=== PATIENT | male | born 1990 | race African-American/Black ===

== ENCOUNTER 2020-07-30 22:44 | Emergency (ER) | payer OTHER ==
[2020-07-31] LABS: SARS-COV-2 RT PCR NEGATIVE (NEGATIVE)
--- NOTE | 2020-07-31 01:30 | EDPHYS ---
Physician Documentation [facility] Name: Kurtis Toribio Jr Age: 30 yrs Sex: Male : 1990 Arrival Date: 07/30/2020 Time: 22:47 Bed 8 Private MD: ED Physician Sae Kaiser HPI: 07/31 00:25 This 30 yrs old Black Male presents to ER via Ambulatory with complaints of Headache, kb Cough, Abdominal Pain, Breathing Difficulty. 00:25 The patient or guardian reports cough, that is intermittent, described as moderate, kb with no sputum. 00:25 Onset: The symptoms/episode began/occurred 2 day(s) ago. Severity of symptoms: At their kb worst the symptoms were moderate, in the emergency department the symptoms are unchanged. Modifying factors: The symptoms are alleviated by nothing, the symptoms are aggravated by nothing. Associated signs and symptoms: The patient has no apparent associated signs or symptoms. The patient has not experienced similar symptoms in the past. The patient has not recently seen a physician. Pt reports cough for 2 days. States when he coughs his head throbs and he has soreness to abd and chest. Historical: - Allergies: 07/30 23:03 No Known Allergies; dm5 - Home Meds: 23:03 None [Active]; dm5 - PMHx: 23:03 Asthma; dm5 - PSHx: 23:03 None; dm5 - Immunization history:: Adult Immunizations up to date. - Social history:: Smoking status: Patient denies any tobacco usage or history of. ROS: 07/31 00:23 Constitutional: Negative for fever, chills, and weight loss, Cardiovascular: Negative kb for chest pain, palpitations, and edema, Abdomen/GI: Negative for abdominal pain, nausea, vomiting, diarrhea, and constipation, MS/Extremity: Negative for injury and deformity, Skin: Negative for injury, rash, and discoloration. Respiratory: Positive for cough, Negative for dyspnea on exertion, hemoptysis, orthopnea, pleurisy, shortness of breath, sputum production, wheezing. Neuro: Positive for headache. Exam: 00:25 Constitutional: This is a well developed, well nourished patient who is awake, alert, kb and in no acute distress. Head/Face: Normocephalic, atraumatic. Cardiovascular: Regular rate and rhythm with a normal S1 and S2. No gallops, murmurs, or rubs. No pulse deficits. Respiratory: Respirations even and unlabored. No increased work of breathing, no retractions or nasal flaring. Abdomen/GI: Soft, non-tender. No distention Skin: Warm, dry with normal turgor. Normal color. MS/ Extremity: Pulses equal, no cyanosis. Neurovascular intact. Full, normal range of motion. Neuro: Awake and alert, GCS 15, oriented to person, place, time, and situation. Moves all extremities. Normal gait. Vital Signs: 00:15 BP 120 / 62; Pulse 68; Resp 17; Pulse Ox 100% ; ea MDM: 07/30 22:53 Patient medically screened. kb 07/31 00:22 Data reviewed: vital signs, nurses notes. Data interpreted: Pulse oximetry: on room air kb is 100 %. Interpretation: normal. Counseling: I had a detailed discussion with the patient and/or guardian regarding: the historical points, exam findings, and any diagnostic results supporting the discharge/admit diagnosis, the need for outpatient follow up, a family practitioner, to return to the emergency department if symptoms worsen or persist or if there are any questions or concerns that arise at home. 07/30 23:01 Order name: Chest Single View XRAY kb 07/31 00:01 Order name: COVID-19/FLU A+B; Complete Time: 00:09 EDMS Administered Medications: No medications were administered Disposition: 07:15 Co-signature as Attending Physician, Sae Kaiser MD. 7 Disposition: 07/31/20 00:17 Discharged to Home. Impression: Cough. - Condition is Stable. - Discharge Instructions: Cough, Adult, [id number]. - Medication Reconciliation Form, Thank You Letter, Antibiotic Education, Prescription Opioid Use, Work release form form. - Follow up: Emergency Department; When: As needed; Reason: Worsening of condition. Follow up: Private Physician; When: 2 - 3 days; Reason: Recheck today's complaints, Continuance of care, Re-evaluation by your physician. Signatures: Dispatcher [employer] EDIA Sonia Barros, Veronika Delgadillo, RADHIKA GARRIDO dm5 Cintia Hurt, Sae Gil RN, ea, MD MD [facility] Corrections: (The following items were deleted from the chart) 07/30 23:13 23:02 CORONAVIRUS+MR.LAB.BRZ ordered. EDMS EDMS 23:14 23:02 Influenza Screen (A \T\ B)+BA.LAB.BRZ ordered. EDIA EDMS 07/31 00:36 00:17 07/31/2020 00:17 Discharged to Home. Impression: Cough. Condition is Stable. ea Forms are Medication Reconciliation Form, Thank You Letter, Antibiotic Education, Prescription Opioid Use. Follow up: Emergency Department; When: As needed; Reason: Worsening of condition. Follow up: Private Physician; When: 2 - 3 days; Reason: Recheck today's complaints, Continuance of care, Re-evaluation by your physician. kb
--- NOTE | 2020-07-31 01:30 | ER ---
Nurse's Notes [facility] Name: Kurtis Toribio Jr Age: 30 yrs Sex: Male : 1990 Arrival Date: 07/30/2020 Time: 22:47 Bed 8 Private MD: Diagnosis: Cough Presentation: 07/30 23:00 Chief complaint: Patient states: cough, headache, trouble breathing x 2 days "head be dm5 banging like it do when you have a bad headache" chest and head hurts when coughing. Coronavirus screen: cough unrelated to allergies, difficulty breathing, headache, Client presents with at least one sign or symptom that may indicate coronavirus-19. Standard/surgical mask placed on the client. Ebola Screen: Patient negative for fever greater than or equal to 101.5 degrees Fahrenheit, and additional compatible Ebola Virus Disease symptoms Patient denies exposure to infectious person. Patient denies travel to an Ebola-affected area in the 21 days before illness onset. No symptoms or risks identified at this time. Initial Sepsis Screen: Does the patient meet any 2 criteria? No. Patient's initial sepsis screen is negative. Does the patient have a suspected source of infection? No. Patient's initial sepsis screen is negative. Risk Assessment: Do you want to hurt yourself or someone else? Patient reports no desire to harm self or others. Onset of symptoms was July 28, 2020. 23:00 Method Of Arrival: Ambulatory dm5 23:00 Acuity: JENNIFER 4 dm5 Triage Assessment: 23:03 Headache History: The patient has had previous headaches and this one is similar to dm5 previous episodes. General: Appears in no apparent distress. uncomfortable, Behavior is calm, cooperative. Pain: Complains of pain in head and chest Pain currently is 5 out of 10 on a pain scale. Pain began 2-3 days ago. Also complains of no other associated symptoms. Neuro: Level of Consciousness is awake, alert, obeys commands, Oriented to person, place, time, situation, Moves all extremities. Gait is steady. Respiratory: Reports shortness of breath at rest cough that is non-productive, Airway is patent Respiratory effort is even, unlabored, Respiratory pattern is regular, symmetrical, Breath sounds are clear bilaterally. GI: No signs and/or symptoms were reported involving the gastrointestinal system. : No signs and/or symptoms were reported regarding the genitourinary system. Derm: Skin is pink, warm \\T\\ dry. Historical: - Allergies: 23:03 No Known Allergies; dm5 - Home Meds: 23:03 None [Active]; dm5 - PMHx: 23:03 Asthma; dm5 - PSHx: 23:03 None; dm5 - Immunization history:: Adult Immunizations up to date. - Social history:: Smoking status: Patient denies any tobacco usage or history of. Screenin/20 00:10 Abuse screen: Denies threats or abuse. Nutritional screening: No deficits noted. ea Tuberculosis screening: No symptoms or risk factors identified. Fall Risk None identified. Assessment: 00:10 General: Appears in no apparent distress. Behavior is calm, cooperative, appropriate ea for age. Pain: Denies pain. Neuro: Level of Consciousness is awake, alert, obeys commands. Cardiovascular: Patient's skin is warm and dry. Respiratory: Airway is patent Respiratory effort is even, unlabored, Respiratory pattern is regular, symmetrical. Derm: Skin is pink, warm \\T\\ dry. 00:34 Reassessment: Patient and/or family updated on plan of care and expected duration. Pain ea level reassessed. Patient is alert, oriented x 3, equal unlabored respirations, skin warm/dry/pink. Discharge instruction given to patient verbalized the understanding of instruction. Pt left ED ambulatory tolerating well. Vital Signs: 00:15 BP 120 / 62; Pulse 68; Resp 17; Pulse Ox 100% ; ea ED Course: 07/30 22:47 Patient arrived in ED. es 22:53 Sonia Barros FNP-C [facility]. kb 22:53 Sae Kaiser MD is Attending Physician. kb 23:00 Veronika Savage, RADHIKA is Primary Nurse. dm5 23:03 Triage completed. dm5 23:03 Arm band placed on Patient placed in an exam room. dm5 23:13 Chest Single View XRAY In Process Unspecified. EDMS 07/31 00:08 Shaji Valencia, RN is Primary Nurse. sg 00:10 Patient has correct armband on for positive identification. Bed in low position. Call ea light in reach. 00:33 No provider procedures requiring assistance completed. Patient did not have IV access ea during this emergency room visit. Administered Medications: No medications were administered Outcome: 00:17 Discharge ordered by . lui 00:33 Discharged to home ambulatory. leatha 00:33 Condition: stable 00:33 Discharge instructions given to patient, Instructed on discharge instructions, follow up and referral plans. Demonstrated understanding of instructions, follow-up care. 00:36 Patient left the ED. leatha Signatures: Dispatcher [employer] EDSonia Kwong, MOTION PICTURE PRINTER-C URI-Veronika Peralta, RN RN Shaji Jalloh RN Marla Godinez Elena, RN RN ea
[2020-07-31 01:35] VITALS: BP 120/62; O2SAT 100
--- NOTE | 2020-07-31 12:59 | RAD REPORT ---
EXAM DESCRIPTION: Chest Single View 07/31/2020 12:09 AM CDT CLINICAL HISTORY: 30 years, Male, COUGH COMPARISON: None. FINDINGS: Single view of the chest was obtained portable. No prior films are available for compariso n. The lung volume is slightly decreased. The cardiomediastinal silhouette demonstrate to be unremark able. The heart is not enlarged. The thoracic aorta is unremarkable. The pulmonary vasculature is nor mal distribution. Costophrenic angles are sharp. No areas of consolidation or masses are seen. Th e rest of the soft tissue and bony structures demonstrate to be unremarkable. IMPRESSION: SLIGHT DECREASED LUNG VOLUME. NO ACUTE CARDIOPULMONARY DISEASE SEEN. Electronically signed by: Keenan Garcia MD 07/31/2020 12:10 AM CDT Due to temporary technical issues with the PACS/Fluency reporting system, reports are being signed by the in house radiologist without review as a courtesy to ensure prompt reporting. The interpreting r adiologist is fully responsible for the content of the report.
== END 2020-07-31 00:36 | disposition home or self-care (01) ==
LOC: ER 22:44
DX: R05 Cough (principal); Z20.822 Contact with and (suspected) exposure to COVID-19
CPT/HCPCS: 0240U; 71045; 99282

== ENCOUNTER 2023-02-25 00:14 | Emergency (ER) | payer OTHER ==
[2023-02-25] MEDS ORDERED: METHYLPREDNISOLONE 125 MG INJ ONE (01:00)
[2023-02-25] MEDS ORDERED: ALBUTEROL 2.5 MG/3 ML NEB SOL ONE (01:00)
[2023-02-25] MEDS ORDERED: ONDANSETRON 4 MG/2 ML VIAL ONE (01:01)
[2023-02-25] MEDS ORDERED: IPRATROPIUM BROM 0.5MG/2.5ML ONE (01:01)
[2023-02-25] MEDS ORDERED: KETOROLAC 30 MG/ML INJ ONE (01:01)
[2023-02-25 01:12] LABS: Absolute Lymphocytes (CBC) 2.8 K/uL (0.7-4.9); Hematocrit 42.5 % (39.6-49.0); Lymphocytes % 32.6 % (15.3-44.8); MCV 90.3 fL (80-100); MPV 7.3 fL (7.6-11.3); Platelets 301 thou/uL (152-406)
[2023-02-25 01:26] LABS: Protime INR 1.17
[2023-02-25 01:31] LABS: Albumin 3.6 g/dL (3.4-5.0); Bilirubin Direct 0.1 mg/dL (0-0.2); Bilirubin Indirect, Calculated 0.3 mg/dL (0.2-0.8); Bilirubin Total 0.4 mg/dL (0.2-1.0); Magnesium 2.1 mg/dL (1.6-2.4); Potassium 3.8 mEq/L (3.5-5.1); Protein, Total 7.5 g/dL (6.4-8.2); Troponin High Sensitivity 7.9 pg/mL (<58.9)
[2023-02-25 01:38] LABS: Barbiturates NEGATIVE (NEGATIVE); Benzodiazepines NEGATIVE (NEGATIVE); Cocaine NEGATIVE (NEGATIVE); METHAMPHETAM NEGATIVE (NEGATIVE); Methadone ND (NEGATIVE); Opiates NEGATIVE (NEGATIVE); Phencyclidine NEGATIVE (NEGATIVE); THC Cannibis NEGATIVE (NEGATIVE)
--- NOTE | 2023-02-25 03:08 | EDPHYS ---
Physician Documentation [facility] Name: Kurtis Toribio Jr Age: 33 yrs Sex: Male : 1990 Arrival Date: 02/25/2023 Time: 00:14 Bed 5 Private MD: ED Physician Moody Lara HPI: 02/25 00:35 This 33 yrs old Black Male presents to ER via Wheelchair with complaints of Asthma cp Exacerbation. 00:35 The patient has shortness of breath at rest. Onset: The symptoms/episode began/occurred cp over past couple days, worse today. Associated signs and symptoms: Pertinent positives: chest pain, non-productive cough, Pertinent negatives: fever, vomiting. Severity of symptoms: in the emergency department the symptoms are unchanged despite home interventions. Historical: - Allergies: 00:33 No Known Allergies; as6 - PMHx: 00:33 Asthma; as6 - PSHx: 00:33 None; as6 - Immunization history:: Client reports having NOT received the Covid vaccine. - Social history:: Smoking status: Patient reports the use of cigarette tobacco products, denies chronic smoking, but will smoke occasionally. ROS: 00:40 Constitutional: Negative for fever, poor PO intake, cp 00:40 Eyes: Negative for injury, pain, redness, and discharge, cp 00:40 ENT: Negative for drainage from ear(s), ear pain, sore throat, difficulty swallowing, difficulty handling secretions, 00:40 Cardiovascular: Positive for chest pain, Negative for edema, palpitations, 00:40 Respiratory: Positive for cough, with no reported sputum, shortness of breath, 00:40 Abdomen/GI: Positive for abdominal pain, Negative for vomiting, diarrhea, constipation, 00:40 Neuro: Negative for altered mental status, dizziness, headache, loss of consciousness, syncope, weakness, 00:40 All other systems are negative, Exam: 00:45 Constitutional: The patient appears in no acute distress, alert, awake, cp non-diaphoretic, non-toxic, well developed, well nourished, uncomfortable, 00:45 Head/Face: Normocephalic, atraumatic. cp 00:45 Eyes: Periorbital structures: appear normal, Conjunctiva: normal, no exudate, no injection, Sclera: no appreciated abnormality, Lids and lashes: appear normal, bilaterally, 00:45 ENT: External ear(s): are unremarkable, Nose: is normal, Mouth: Lips: moist, Oral mucosa: moist, Posterior pharynx: is normal, airway is patent, no erythema, no exudate, 00:45 Neck: ROM/movement: is normal, is supple, without pain, no range of motions limitations, no meningismus, 00:45 Chest/axilla: Inspection: normal, Palpation: crepitus, is not appreciated, tenderness, that is mild, of the anterior aspect of left upper chest, diaphragm, mid-sternal area and left breast, 00:45 Cardiovascular: Rate: normal, Rhythm: regular, Edema: is not appreciated, JVD: is not appreciated, 00:45 Respiratory: the patient does not display signs of respiratory distress, Respirations: labored breathing, is not present, shallow respirations, that is mild, Breath sounds: decreased breath sounds, that are moderate, throughout, stridor, is not appreciated, 00:45 Abdomen/GI: Inspection: abdomen appears normal, Bowel sounds: active, all quadrants, Palpation: soft, in all quadrants, mild abdominal tenderness, in the epigastric area, rebound tenderness, is not appreciated, involuntary guarding, is not appreciated, 00:45 Skin: no rash present. 00:45 Neuro: Orientation: to person, place \T\ time. Mentation: is normal, Motor: moves all fours, strength is normal, Sensation: is normal, 00:50 ECG was reviewed by the Attending Physician. cp Vital Signs: 00:31 BP 148 / 95; Pulse 72; Resp 24 S; Temp 97.9(O); Pulse Ox 100% on R/A; Weight 127.01 kg as6 (R); Height 5 ft. 11 in. (R); Pain 10/10; 00:31 Body Mass Index 39.05 (127.01 kg, 180.34 cm) as6 00:31 Pain Scale: Adult as6 MDM: 00:27 Patient medically screened. cp 03:08 Data reviewed: vital signs, nurses notes, lab test result(s), EKG, radiologic studies, cp CT scan, plain films. 03:08 Consideration of Admission/Observation Escalation of care including cp admission/observation considered. I considered the following discharge prescriptions or medication management in the emergency department Medications were administered in the Emergency Department. See MAR. Care significantly affected by the following chronic conditions: asthma. Counseling: I had a detailed discussion with the patient and/or guardian regarding the historical points, exam findings, and any diagnostic results supporting the discharge/admit diagnosis, lab results, radiology results, to return to the emergency department if symptoms worsen or persist or if there are any questions or concerns that arise at home. Response to treatment: the patient's symptoms have markedly improved after treatment, and as a result, I will discharge patient. Special discussion: Based on the patient's history, exam, and Dx evaluation, there is no indication for emergent intervention or inpatient Tx. It is understood by the patient/guardian that if the Sx's persist or worsen they need to return immediately for re-evaluation. 02/25 00:30 Order name: Basic Metabolic Panel; Complete Time: : cp 02/25 02:34 Interpretation: Normal except: CL 111. cp 02/25 00:30 Order name: CBC with Diff; Complete Time: : cp 02/25 00:30 Order name: LFT's; Complete Time: cp 02/25 02:35 Interpretation: Normal except: ALT 81; GLOB 3.9; A/G 0.9. cp 02/25 00:30 Order name: Magnesium; Complete Time: : cp 02/25 00:30 Order name: NT PRO-BNP; Complete Time: : cp 02/25 00:30 Order name: PT-INR; Complete Time: 01: cp 02/25 00:30 Order name: Troponin HS; Complete Time: : cp 02/25 00:30 Order name: COVID-19 SARS RT PCR; Complete Time: : cp 02/25 00:30 Order name: Influenza Screen (a \T\ B); Complete Time: : cp 02/25 00:30 Order name: UDS; Complete Time: : cp 02/25 00:31 Order name: Lipase; Complete Time: : cp 02/25 00:30 Order name: XRAY Chest (1 view) cp 02/25 01:29 Order name: CT Chest For PE Angio cp 02/25 00:30 Order name: EKG; Complete Time: 00:31 cp 02/25 00:30 Order name: Cardiac monitoring; Complete Time: 03:09 cp 02/25 00:30 Order name: EKG - Nurse/Tech; Complete Time: : 02/25 00:30 Order name: IV Saline Lock; Complete Time: 02/25 00:30 Order name: Labs collected and sent; Complete Time: 02/25 00:30 Order name: O2 Per Protocol; Complete Time: : 02/25 00:30 Order name: O2 Sat Monitoring; Complete Time: : EC:50 Rate is 87 beats/min. Rhythm is regular. MI interval is normal. QRS interval is normal. cp QT interval is normal. T waves are Inverted in lead aVR. Interpreted by me. Reviewed by me. Administered Medications: 00:33 CANCELLED (Physician Discretion): morphineor iv 4 mg IVP once over 4 mins cp 01:05 Drug: DuoNeb Nebulize (2.5 mg - 0.5 mg) 3 ml Nebulizer once Route: Nebulizer; jb4 01:05 Drug: MethylPrednisoLONE IVP 125 mg IVP once Route: IVP; Site: right antecubital; jb4 01:05 Not Given (Patient Refused): mg IVP once jb4 01:06 Not Given (Patient Refused): ondansetron 4 mg IVP once; over 2 minutes jb4 Disposition: 03:28 Co-signature as Attending Physician, Moody Lara MD I agree with the assessment sp4 and plan of care. I reviewed the patient's care provided by the Advanced Practice Provider and agree with the diagnosis and treatment plan. Disposition Summary: 02/25/23 03:08 Discharge Ordered Notes: Location: Home cp Problem: an acute exacerbation cp Symptoms: have improved cp Condition: Stable cp Diagnosis - Unspecified asthma with (acute) exacerbation cp - Chest pain, unspecified cp Followup: cp - With: Private Physician - When: 2 - 3 days - Reason: Recheck today's complaints Discharge Instructions: - Discharge Summary Sheet cp - Asthma, Adult cp - Nonspecific Chest Pain, Adult cp Forms: - Medication Reconciliation Form cp - Thank You Letter cp - Antibiotic Education cp - Prescription Opioid Use cp - Patient Portal Instructions cp - Leadership Thank You Letter cp Prescriptions: - albuterol sulfate 90 mcg/actuation Inhalation HFA Aerosol Inhaler - inhale 2 puff INHALATION route every 4-6 hours as needed for shortness of cp breath or wheezing; 1 unit; Refills: 0, Product Selection Permitted - Ibuprofen 800 mg Oral Tablet - take 1 tablet ORAL route every 8 hours As needed take with food; 30 tablet; cp Refills: 0, Product Selection Permitted - Medrol (Brad) 4 mg Oral Tablets, Dose Pack - take 1 tablet ORAL route as directed - follow package instructions; 1 packet; cp Refills: 0, Product Selection Permitted Signatures: Dispatcher [employer] EDMS Aaron Parada PA PA cp Chepe Arnold, RN RN jb4 Fritz Santiago RN RN as6 Moody Lara MD MD sp4 Corrections: (The following items were deleted from the chart) 00:33 00:31 morphine IVP or IV 4 mg IVP once over 4 mins ordered. cp cp 01:30 00:31 D-DIMER+COAG.LAB.BRZ ordered. EDMS EDMS 23:20 03:28 ED course: . sp4 cp
--- NOTE | 2023-02-25 03:08 | ER ---
Nurse's Notes [facility] Name: Kurtis Toribio Jr Age: 33 yrs Sex: Male : 1990 Arrival Date: 02/25/2023 Time: 00:14 Bed 5 Private MD: Diagnosis: Unspecified asthma with (acute) exacerbation;Chest pain, unspecified Presentation: 02/25 00:31 Chief complaint: Patient states: cough and "asthma attack" for a couple days with as6 worsening shortness of breath that started today. Coronavirus screen: At this time, the client does not indicate any symptoms associated with coronavirus-19. Ebola Screen: No symptoms or risks identified at this time. Initial Sepsis Screen: Does the patient meet any 2 criteria? No. Patient's initial sepsis screen is negative. Does the patient have a suspected source of infection? No. Patient's initial sepsis screen is negative. Risk Assessment: Do you want to hurt yourself or someone else? Patient reports no desire to harm self or others. Onset of symptoms was February 24, 2023. 00:31 Acuity: JENNIFER 3 as6 00:31 Method Of Arrival: Wheelchair as6 Historical: - Allergies: 00:33 No Known Allergies; as6 - PMHx: 00:33 Asthma; as6 - PSHx: 00:33 None; as6 - Immunization history:: Client reports having NOT received the Covid vaccine. - Social history:: Smoking status: Patient reports the use of cigarette tobacco products, denies chronic smoking, but will smoke occasionally. Screenin:15 [facility] ED Fall Risk Assessment (Adult) History of falling in the last 3 months, jb4 including since admission No falls in past 3 months (0 pts) Confusion or Disorientation No (0 pts) Score/Fall Risk Level 0 - 2 = Low Risk Oriented to surroundings, Maintained a safe environment. Abuse screen: Denies threats or abuse. Nutritional screening: No deficits noted. Tuberculosis screening: No symptoms or risk factors identified. Assessment: 00:45 General: Appears in no apparent distress. comfortable, Behavior is calm, cooperative, jb4 appropriate for age. Pain: Denies pain. Neuro: Level of Consciousness is awake, alert, obeys commands, Oriented to person, place, time, situation. Cardiovascular: Patient's skin is warm and dry. Respiratory: Airway is patent Respiratory effort is even, unlabored, Respiratory pattern is regular, symmetrical. GI: No signs and/or symptoms were reported involving the gastrointestinal system. : No signs and/or symptoms were reported regarding the genitourinary system. EENT: No signs and/or symptoms were reported regarding the EENT system. Derm: Skin is intact, Skin is dry, Skin is normal, Skin temperature is warm. Musculoskeletal: Circulation, motion, and sensation intact. Range of motion: intact in all extremities. 01:53 Reassessment: Patient appears in no apparent distress at this time. Patient and/or jb4 family updated on plan of care and expected duration. Pain level reassessed. Patient states feeling better. 03:15 Reassessment: Patient appears in no apparent distress at this time. Patient and/or jb4 family updated on plan of care and expected duration. Pain level reassessed. Patient is alert, oriented x 3, equal unlabored respirations, skin warm/dry/pink. Vital Signs: 00:31 BP 148 / 95; Pulse 72; Resp 24 S; Temp 97.9(O); Pulse Ox 100% on R/A; Weight 127.01 kg as6 (R); Height 5 ft. 11 in. (R); Pain 10/10; 00:31 Body Mass Index 39.05 (127.01 kg, 180.34 cm) as6 00:31 Pain Scale: Adult as6 ED Course: 00:16 Patient arrived in ED. mr 00:17 Aaron Parada PA is PHCP. cp 00:17 Moody Lara MD is Attending Physician. cp 00:30 Arm band placed on. as6 00:33 Triage completed. as6 01:09 XRAY Chest (1 view) In Process Unspecified. EDMS 02:06 CT Chest For PE Angio In Process Unspecified. EDMS 03:15 Patient has correct armband on for positive identification. Bed in low position. Call jb4 light in reach. Side rails up X 1. 03:46 Chepe Arnold, RADHIKA is Primary Nurse. jb4 03:46 No provider procedures requiring assistance completed. IV discontinued, intact, jb4 bleeding controlled, No redness/swelling at site. Pressure dressing applied. Administered Medications: 00:33 CANCELLED (Physician Discretion): morphineor iv 4 mg IVP once over 4 mins cp 01:05 Drug: DuoNeb Nebulize (2.5 mg - 0.5 mg) 3 ml Nebulizer once Route: Nebulizer; jb4 01:05 Drug: MethylPrednisoLONE IVP 125 mg IVP once Route: IVP; Site: right antecubital; jb4 01:05 Not Given (Patient Refused): mg IVP once jb4 01:06 Not Given (Patient Refused): ondansetron 4 mg IVP once; over 2 minutes jb4 Outcome: 03:08 Discharge ordered by MD. cp 03:46 Discharged to home ambulatory, jb4 03:46 Condition: stable 03:46 Discharge instructions given to patient, Instructed on discharge instructions, follow up and referral plans. medication usage, Demonstrated understanding of instructions, follow-up care, medications, Prescriptions given X 3, 03:47 Patient left the ED. jb4 Signatures: Dispatcher [employer] EDMS Ondina Friedman, Reg Reg mr Aaron Parada, PA PA Chepe Cunningham, RN RN jb4 Fritz Santiago RN RN as6 Corrections: (The following items were deleted from the chart) 03:46 03:15 No provider procedures requiring assistance completed. jb4 jb4 03:46 03:15 IV discontinued, intact, bleeding controlled, No redness/swelling at site. jb4 Pressure dressing applied, jb4
[2023-02-25 04:14] VITALS: BP 148/95; TEMP 97.9; O2SAT 100
--- NOTE | 2023-02-26 17:05 | EKG ---
Test Date: 2023-02-25 Test Time: 00:43:36 Television Production Assistant: FLORENCIO MEASUREMENT RESULTS: Intervals: Rate: 87 OR: 146 QRSD: 76 QT: 352 QTc: 423 [place]: P: 73 OR: 146 QRS: 88 T: 36 INTERPRETIVE STATEMENTS: Normal sinus rhythm Normal ECG Compared to ECG 03/01/2017 15:57:22 Sinus arrhythmia no longer present T-wave abnormality no longer present Electronically Signed On 02-26-23 17:03:49 CDT by Oleksandr Brito
--- NOTE | 2023-02-26 17:23 | RAD REPORT ---
EXAM DESCRIPTION: Chest Single View 02/25/2023 1:19 AM CDT CLINICAL HISTORY: 33 years, Male, CHEST PAIN COMPARISON: None. FINDINGS: 1 x-ray views of the chest (portable) was obtained. No prior films are available for [facility]. The cardiomediastinal silhouette demonstrate to be within normal limits. The heart demonstrate to be within normal limits. The thoracic aorta is unremarkable. The pulmonary vasculature is normal distribution. Costophrenic angles are sharp. No areas of consolidation or masses are seen. The re st of the soft tissue and bony structures demonstrate to be unremarkable. IMPRESSION: No acute cardiopulmonary disease. Electronically signed by: Keenan Garcia MD 02/25/2023 1:19 AM CDT Due to temporary technical issues with the PACS/Fluency reporting system, reports are being signed by the in house radiologists without review as a courtesy to insure prompt reporting. The interpreting radiologist is fully responsible for the content of the report.
--- NOTE | 2023-02-26 17:25 | RAD REPORT ---
EXAM DESCRIPTION: CT Angiography Chest With Intravenous Contrast CLINICAL HISTORY: The patient is 33 years old and is Male; Chest pain;SOB TECHNIQUE: Axial computed tomographic angiography images of the chest with intravenous contrast. T his CT exam was performed using one or more of the following dose reduction techniques: automated e xposure control, adjustment of the mA and/or kV according to patient size, and/or use of iterative re construction technique. MIP reconstructed images were created and reviewed. Oblique reformatted images were created and reviewed. DLP: 388 mGy*cm COMPARISON: Chest radiograph of the same day. FINDINGS: PULMONARY ARTERIES: Unremarkable. No pulmonary embolism. AORTA: No acute findings. No thoracic aortic aneurysm. LUNGS: Unremarkable. No mass. No consolidation. PLEURAL SPACE: Unremarkable. No significant effusion. No pneumothorax. HEART: Unremarkable. No cardiomegaly. No significant pericardial effusion. No evidence of RV dysfunction. BONES/JOINTS: No acute fracture. No dislocation. SOFT TISSUES: Unremarkable. LYMPH NODES: Unremarkable. No enlarged lymph nodes. IMPRESSION: No acute aortic abnormality or pulmonary embolism. No acute intrathoracic abnormality. Electronically signed by: Jhonatan Solorio DO 02/25/2023 2:18 AM CDT Due to temporary technical issues with the PACS/Fluency reporting system, reports are being signed by the in house radiologists without review as a courtesy to insure prompt reporting. The interpreting radiologist is fully responsible for the content of the report.
== END 2023-02-25 03:47 | disposition home or self-care (01) ==
LOC: ER 00:14
DX: J45.901 Unspecified asthma with (acute) exacerbation (principal); F17.210 Nicotine dependence, cigarettes, uncomplicated; Z20.822 Contact with and (suspected) exposure to COVID-19
CPT/HCPCS: 93005; 85025; 80048; 36415; 83735; 85610; 80076; 84484; 83690; 83880; 87635; 80307; 87804 ×2; 71275; 71045; 94640; 96374; 99284; Q9967; J7613; J7644; J2930; J2405

== ENCOUNTER 2023-10-27 20:09 | Emergency (ER) | payer OTHER ==
--- OUTSIDE RECORDS SUMMARY | 2023-10-27 20:11 | XMS REPORT | Continuity of Care Document ---
Author Name Unknown Address [address] [place] [address] th[address] Address [address] [place] [address] 1 [address] [place] [address] Care Team Providers Care Quality Compliance Coordinator Name Role Phone Unavailable Unavailable Unavailable Encounters Start Date/Time End Date/Time Encounter Type Admission Type Attending Clinicians Care Facility Care Department Encounter ID Source 2023-09-21 12:39:23 2023-09-21 12:39:23 Emergency [id number] [facility] [id number] [facility]
--- NOTE | 2023-10-27 20:46 | ER ---
Nurse's Notes [facility] Name: Kurtis Toribio Jr Age: 33 yrs Sex: Male : 1990 Arrival Date: 10/27/2023 Time: 20:09 Bed 10 Private MD: Diagnosis: Dysuria Presentation: 10/26 20:14 Chief complaint: Patient states: penile pain with yellow discharge that began yesterda. ss Coronavirus screen: Client denies travel out of the [place] in the last 14 days. Ebola Screen: Patient denies exposure to infectious person. Patient denies travel to an Ebola-affected area in the 21 days before illness onset. Initial Sepsis Screen: Does the patient meet any 2 criteria? No. Patient's initial sepsis screen is negative. Does the patient have a suspected source of infection? No. Patient's initial sepsis screen is negative. Risk Assessment: Do you want to hurt yourself or someone else? Patient reports no desire to harm self or others. Onset of symptoms was October 26, 2023. 20:14 Method Of Arrival: Ambulatory 20:14 Acuity: JENNIFER 4 ss Historical: - Allergies: 20:15 No Known Allergies; ss - Home Meds: 20:15 None [Active]; ss - PMHx: 20:15 Asthma; ss - PSHx: 20:15 None; ss - Immunization history:: Client reports having NOT received the Covid vaccine. - Infectious Disease History:: Denies. - Social history:: Smoking status: Patient denies any tobacco usage or history of. Vital Signs: 20:14 BP 160 / 93; Pulse 94; Resp 16; Temp 98.5(TE); Pulse Ox 99% on R/A; Weight 86.18 kg; ss Height 5 ft. 11 in. ; Pain 9/10; 20:14 Body Mass Index 26.50 (86.18 kg, 180.34 cm) ss 20:14 Pain Scale: Adult ED Course: 20:09 Patient arrived in ED. jj6 20:14 Aaron Christensen MD is Attending Physician. joy 20:15 Triage completed. ss 20:15 Arm band placed on right wrist. ss 20:45 Shubham Liz DO is Referral Physician. joy 21:02 Mini Soto, RADHIKA is Primary Nurse. ss 21:23 No provider procedures requiring assistance completed. Patient did not have IV access ss during this emergency room visit. Administered Medications: 21:19 Drug: Rocephin (cefTRIAXone) IM 1 grams IM once Route: IM; Site: right gluteus; 21:19 Drug: Doxycycline PO 100 mg PO once Route: PO; 21:19 Drug: AZITHromycin PO 1 grams PO once Route: PO; Outcome: 20:46 Discharge ordered by . joy 21:23 Discharged to home ambulatory, 21:23 Condition: good 21:23 Discharge instructions given to patient, Instructed on discharge instructions, follow up and referral plans. medication usage, Demonstrated understanding of instructions, follow-up care, medications, Prescriptions given X 2, 21:23 Patient left the ED. Signatures: Aaron Christensen MD MD cha Blanchard, Shelby, RADHIKA RN Rosie Baker jj6 Corrections: (The following items were deleted from the chart) 20:16 20:14 Chief complaint: Patient states: penile pain that began yesterday. [facility]
--- NOTE | 2023-10-27 20:46 | EDPHYS ---
Physician Documentation [facility] Name: Kurtis Toribio Jr Age: 33 yrs Sex: Male : 1990 Arrival Date: 10/27/2023 Time: 20:09 Bed 10 Private MD: ED Physician Aaron Christensen HPI: 10/26 20:41 This 33 yrs old Black Male presents to ER via Ambulatory with complaints of Pelvic Pain.joy 20:41 The patient presents with tenderness, urinary symptoms, dysuria, urinary frequency. joy Onset: The symptoms/episode began/occurred 5 day(s) ago. Modifying factors: The symptoms are alleviated by nothing, the symptoms are aggravated by urinating. Associated signs and symptoms: The patient has no apparent associated signs or symptoms. Severity of symptoms: At their worst the symptoms were mild, in the emergency department the symptoms are unchanged. It is unknown whether or not the patient has had similar symptoms in the past. Historical: - Allergies: 20:15 No Known Allergies; ss - Home Meds: 20:15 None [Active]; ss - PMHx: 20:15 Asthma; ss - PSHx: 20:15 None; ss - Immunization history:: Client reports having NOT received the Covid vaccine. - Infectious Disease History:: Denies. - Social history:: Smoking status: Patient denies any tobacco usage or history of. ROS: 20:42 Constitutional: Negative for fever, chills, and weight loss, Eyes: Negative for injury, joy pain, redness, and discharge, ENT: Negative for injury, pain, and discharge, Neck: Negative for injury, pain, and swelling, Cardiovascular: Negative for chest pain, palpitations, and edema, Respiratory: Negative for shortness of breath, cough, wheezing, and pleuritic chest pain, Abdomen/GI: Negative for abdominal pain, nausea, vomiting, diarrhea, and constipation, Back: Negative for injury and pain, MS/Extremity: Negative for injury and deformity, Skin: Negative for injury, rash, and discoloration, Neuro: Negative for headache, weakness, numbness, tingling, and seizure, Psych: Negative for depression, anxiety, suicide ideation, homicidal ideation, and hallucinations, Allergy/Immunology: Negative for hives, rash, and allergies, Endocrine: Negative for neck swelling, polydipsia, polyuria, polyphagia, and marked weight changes, Hematologic/Lymphatic: Negative for swollen nodes, abnormal bleeding, and unusual bruising, 20:42 : Positive for urinary symptoms, burning with urination, difficulty urinating, foul smelling urine, Exam: 20:42 Constitutional: This is a well developed, well nourished patient who is awake, alert, joy and in no acute distress. Head/Face: Normocephalic, atraumatic. Eyes: Pupils equal round and reactive to light, extra-ocular motions intact. Lids and lashes normal. Conjunctiva and sclera are non-icteric and not injected. Cornea within normal limits. Periorbital areas with no swelling, redness, or edema. ENT: Nares patent. No nasal discharge, no septal abnormalities noted. Tympanic membranes are normal and external auditory canals are clear. Oropharynx with no redness, swelling, or masses, exudates, or evidence of obstruction, uvula midline. Mucous membranes moist. Neck: Trachea midline, no thyromegaly or masses palpated, and no cervical lymphadenopathy. Supple, full range of motion without nuchal rigidity, or vertebral point tenderness. No Meningismus. Chest/axilla: Normal chest wall appearance and motion. Nontender with no deformity. No lesions are appreciated. Cardiovascular: Regular rate and rhythm with a normal S1 and S2. No gallops, murmurs, or rubs. Normal PMI, no JVD. No pulse deficits. Respiratory: Lungs have equal breath sounds bilaterally, clear to auscultation and percussion. No rales, rhonchi or wheezes noted. No increased work of breathing, no retractions or nasal flaring. Abdomen/GI: Soft, non-tender, with normal bowel sounds. No distension or tympany. No guarding or rebound. No evidence of tenderness throughout. Back: No spinal tenderness. No costovertebral tenderness. Full range of motion. Skin: Warm, dry with normal turgor. Normal color with no rashes, no lesions, and no evidence of cellulitis. MS/ Extremity: Pulses equal, no cyanosis. Neurovascular intact. Full, normal range of motion. Neuro: Awake and alert, GCS 15, oriented to person, place, time, and situation. Cranial nerves II-XII grossly intact. Motor strength 5/5 in all extremities. Sensory grossly intact. Cerebellar exam normal. Normal gait. Psych: Awake, alert, with orientation to person, place and time. Behavior, mood, and affect are within normal limits. 20:42 : CVA tenderness, is absent, Male external genitalia: Patient is not circumisioned. Bladder: is normal, Sexual behavior: the patient is sexually active, and reports a single partner, Vital Signs: 20:14 BP 160 / 93; Pulse 94; Resp 16; Temp 98.5(TE); Pulse Ox 99% on R/A; Weight 86.18 kg; ss Height 5 ft. 11 in. ; Pain 9/10; 20:14 Body Mass Index 26.50 (86.18 kg, 180.34 cm) ss 20:14 Pain Scale: Adult ss MDM: 20:14 Patient medically screened. [facility] 20:44 Differential diagnosis: UTI, prostatitis, urethritis. Data reviewed: vital signs, [facility] nurses notes, lab test result(s), urinalysis. Consideration of Admission/Observation Escalation of care including admission/observation considered. I considered the following discharge prescriptions or medication management in the emergency department Medications were administered in the Emergency Department. See MAR. Test considered but Not performed: Labs: no cbc, no comp met. Care significantly affected by the following chronic conditions: asthma. Counseling: I had a detailed discussion with the patient and/or guardian regarding the historical points, exam findings, and any diagnostic results supporting the discharge/admit diagnosis, the need for outpatient follow up, for definitive care, a family practitioner, a urologist. 10/26 20:40 Order name: Urinalysis w/ reflexes joy 10/26 20:40 Order name: Rpr joy Administered Medications: 21:19 Drug: Rocephin (cefTRIAXone) IM 1 grams IM once Route: IM; Site: right gluteus; ss 21:19 Drug: Doxycycline PO 100 mg PO once Route: PO; ss 21:19 Drug: AZITHromycin PO 1 grams PO once Route: PO; ss Disposition Summary: 10/27/23 20:46 Discharge Ordered Notes: Location: Home joy Problem: new joy Symptoms: have improved joy Condition: Stable joy Diagnosis - Dysuria joy Followup: joy - With: Private Physician - When: 2 - 3 days - Reason: Recheck today's complaints, Continuance of care, Re-evaluation by your physician Followup: joy - With: Shubham Liz, DO - When: 2 - 3 days - Reason: Recheck today's complaints, Re-evaluation by your physician Discharge Instructions: - Discharge Summary Sheet joy - Dysuria joy - Preventing Sexually Transmitted Infections, Adult joy Forms: - Medication Reconciliation Form joy - Antibiotic Education joy - Prescription Opioid Use joy - Patient Portal Instructions joy - Leadership Thank You Letter [facility] Prescriptions: - Flagyl 500 mg Oral Tablet - take 1 tablet ORAL route every 8 hours for 10 days; 30 tablet; Refills: 0, [facility] Product Selection Permitted - Doxycycline Hyclate 100 mg Oral tablet - take 1 tablet ORAL route every 12 hours; 28 tablet; Refills: 0, Product [facility] Selection Permitted Signatures: Dispatcher [employer] EDAaron Gandara MD MD cha Blanchard, Shelby, RN RN ss Corrections: (The following items were deleted from the chart) 20:41 20:40 Urinalysis+U.LAB.BRZ ordered. EDMS EDMS 20:41 20:40 RPR+I.LAB.BRZ ordered. EDMS EDMS
[2023-10-27] MEDS ORDERED: CEFTRIAXONE 1000 MG/VIAL ONE (21:11)
[2023-10-27] MEDS ORDERED: AZITHROMYCIN 250 MG TAB ONE (21:11)
[2023-10-27] MEDS ORDERED: WATER FOR INJ,STERILE 10 ML ONE (21:12)
[2023-10-27] MEDS ORDERED: DOXYCYCLINE 100 MG CAP PO ONE (21:12)
[2023-10-27 21:18] LABS: RPR Titer ND
[2023-10-27 21:31] LABS: Specific Gravity > 1.030 (1.005-1.030); Sqamous Epithelial None Seen /HPF (None Seen); Urine Bacteria None Seen /HPF (<20); Urine Bilirubin NEGATIVE (Negative); Urine Blood Negative (Negative); Urine Clarity Clear (Clear); Urine Color Yellow (Yellow); Urine Culture Reflex Order NOT NEEDED; Urine Glucose NEGATIVE (Negative); Urine Ketones NEGATIVE (Negative); Urine Microscopic Reflex YN ORDER UMIC; Urine Nitrite NEGATIVE (Negative); Urine Protein TRACE (Negative); Urine RBC <5 /HPF (None Seen); Urine Urobilinogen 1+ (Normal); Urine WBC <5 /HPF (<5)
[2023-10-27 21:36] VITALS: BP 160/93; TEMP 98.5; O2SAT 99
[2023-10-27 21:56] LABS: RPR (Rapid Plasma Reagin) NON-REACT (NON-REACT)
== END 2023-10-27 21:23 | disposition home or self-care (01) ==
LOC: ER 20:09
DX: R30.0 Dysuria (principal); R10.2 Pelvic and perineal pain
CPT/HCPCS: 81001; 36415; 86592; 96372; 99284; J0696

== ENCOUNTER 2023-11-18 20:21 | Emergency (ER) | payer OTHER ==
--- OUTSIDE RECORDS SUMMARY | 2023-11-18 20:24 | XMS REPORT | Continuity of Care Document ---
Author Name Unknown Address [address] [place] [address] thconnect Address [address] [place] [address] 1 [address] [place] [address] Care Team Providers Care Tax Accounting Assistant Name Role Phone Unavailable Unavailable Unavailable Encounters Start Date/Time End Date/Time Encounter Type Admission Type Attending Clinicians Care Facility Care Department Encounter ID Source 2023-09-21 12:39:23 2023-09-21 12:39:23 Emergency [id number] [facility] [id number] [facility]
[2023-11-18] MEDS ORDERED: ALBUTEROL 2.5 MG/3 ML NEB SOL ONE (20:54)
[2023-11-18] MEDS ORDERED: METHYLPREDNISOLONE 40 MG INJ ONE (20:55)
[2023-11-18] MEDS ORDERED: LORazepam 2 MG/ML VIAL ONE (20:55)
[2023-11-18] MEDS ORDERED: MAGNESIUM SULFATE 1 gm IVPB 1 GM/100 ML BAG IV ONE (20:56)
[2023-11-18] MEDS ORDERED: NA CHLORIDE 0.9% 1,000 ML ONE (20:56)
[2023-11-18 20:58] LABS: Absolute Basophils 0.1 K/uL (0-0.5); Absolute Eosinophils 0.2 K/uL (0-0.5); Absolute Lymphocytes (CBC) 2.9 K/uL (0.7-4.9); Absolute Monocytes 0.4 K/uL (0.1-1.3); Eosinophils % 2.1 % (0-4.4); Hemoglobin 13.2 g/dL (13.6-17.9); Lymphocytes % 38.3 % (15.3-44.8); MCH 30.4 pg (27.0-35.0); MCHC 33.9 g/dL (32.0-36.0); MCV 89.7 fL (80-100); MPV 8.3 fL (7.6-11.3); Monocytes % 4.9 % (3.3-12.3); Neutrophils % 53.7 % (41.7-73.7); Platelets 291 thou/uL (152-406); RBC Red Blood Cell Count 4.34 M/uL (4.33-5.43); Red Cell Distribution Width 12.8 % (12.1-15.2)
[2023-11-18 21:19] LABS: Anion Gap 7.9 mEq/L (5.0-15.0); Magnesium 2.2 mg/dL (1.6-2.4); Potassium 2.9 mEq/L (3.5-5.1); Troponin High Sensitivity 9.4 pg/mL (<58.9)
--- NOTE | 2023-11-18 21:33 | RAD REPORT ---
EXAM DESCRIPTION: Leila Single View11/18/2023 8:46 pm CLINICAL HISTORY: sob COMPARISON: 2022 FINDINGS: Lungs are moderately hyperaerated The lungs appear clear of acute infiltrate. The heart is normal size IMPRESSION: Moderately hyperaerated lungs may indicate reactive airway
[2023-11-18] MEDS ORDERED: POTASSIUM 25 MEQ EFFERV TAB ONE (21:43)
--- NOTE | 2023-11-18 22:07 | EDPHYS ---
Physician Documentation [facility] Name: Kurtis Toribio Jr Age: 33 yrs Sex: Male : 1990 Arrival Date: 11/18/2023 Time: 20:21 Bed 2 Private MD: ED Physician Mandeep Johnson HPI: 11/17 20:40 This 33 yrs old Black Male presents to ER via Ambulatory with complaints of Shortness sb4 Of Breath. 20:40 The patient has shortness of breath at rest. Onset: The symptoms/episode began/occurred sb4 today. Duration: The symptoms are continuous. The patient's shortness of breath is aggravated by exertion, is alleviated by nothing. Associated signs and symptoms: Pertinent positives: chest pain. The patient has experienced similar episodes in the past, a few times, today's symptoms are similar. patient states he had an asthma attack start earlier today when he was at [facility]. he does not have an inhaler currently. states he hasn't had an asthma attack in several years. reports associated chest pain and cough. Historical: - Allergies: 20:28 No Known Allergies; ph - Home Meds: 20:28 None [Active]; ph - PMHx: 20:28 Asthma; ph - Immunization history:: Adult Immunizations unknown. - Infectious Disease History:: Denies. - Social history:: Smoking status: Patient denies any tobacco usage or history of. ROS: 20:40 Constitutional: Negative for fever, chills, and weight loss, sb4 20:40 Cardiovascular: Positive for chest pain, 20:40 Respiratory: Positive for dyspnea on exertion, shortness of breath, 20:40 All other systems are negative, Exam: 20:40 Constitutional: This is a well developed, well nourished patient who is awake, alert, sb4 and in no acute distress. Head/Face: Normocephalic, atraumatic. Eyes: Extra-ocular motions intact. Periorbital areas with no swelling, redness, or edema. ENT: Mucous membranes moist. Cardiovascular: Regular rate and rhythm with a normal S1 and S2. Respiratory: Lungs have equal breath sounds bilaterally, clear to auscultation and percussion. No rales, rhonchi or wheezes noted. No increased work of breathing, no retractions or nasal flaring. Abdomen/GI: Soft, non-tender, no distension. Skin: Warm, dry with normal turgor. Normal color with no rashes, no lesions, and no evidence of cellulitis. MS/ Extremity: Pulses equal, no cyanosis. Neurovascular intact. Full, normal range of motion. Neuro: Awake and alert, GCS 15, oriented to person, place, time, and situation. Motor strength 5/5 in all extremities. Sensory grossly intact. 20:40 Special observations: complaints out of proportion to exam, no evidence of discomfort, Vital Signs: 20:24 BP 155 / 86; Pulse 102; Resp 20; Temp 98.7(O); Pulse Ox 100% on R/A; Weight 127.01 kg; ph Height 5 ft. 111 in. ; Pain 9/10; 21:00 BP 142 / 88; Pulse 78; Resp 20; Pulse Ox 100% on R/A; me1 22:00 BP 145 / 91; Pulse 85; Resp 15; Temp 98.2; Pulse Ox 96% on R/A; me1 20:24 Body Mass Index 6.73 (127.01 kg, 434.34 cm) ph 20:24 Pain Scale: Adult ph MDM: 20:31 Patient medically screened. sb4 22:04 Data reviewed: vital signs, nurses notes, lab test result(s), EKG, radiologic studies, sb4 and as a result, I will discharge patient. Counseling: I had a detailed discussion with the patient and/or guardian regarding the historical points, exam findings, and any diagnostic results supporting the discharge/admit diagnosis, lab results, radiology results, the need for outpatient follow up, for definitive care, to return to the emergency department if symptoms worsen or persist or if there are any questions or concerns that arise at home. 11/17 20:36 Order name: CBC with Diff; Complete Time: 21:11 sb4 11/17 20:36 Order name: BMP; Complete Time: 21:38 sb4 11/17 20:36 Order name: Magnesium; Complete Time: 21:38 sb4 11/17 20:36 Order name: Troponin High Sensitivity; Complete Time: 21:38 sb4 11/17 20:36 Order name: BNP; Complete Time: 21:38 sb4 11/17 20:35 Order name: Chest Single View XRAY; Complete Time: 21:38 sb4 11/17 20:35 Order name: IV Start; Complete Time: 20:52 sb4 11/17 20:36 Order name: EKG - Nurse/Tech; Complete Time: 21:48 sb4 EC:07 Rate is 81 beats/min. Rhythm is regular, Normal Sinus Rhythm. MI interval is normal at sb4 148 msec. QRS interval is normal at 82 msec. QT interval is normal at 392 msec. No Q waves. T waves are Normal. No ST changes noted. Clinical impression: Normal ECG and No evidence of ischemia. Interpreted by me. Reviewed by me. Administered Medications: 21:05 Drug: Magnesium Sulfate IVPB 1 grams IVPB once over 1 hrs Route: IVPB; Infused Over: 1 me1 hrs; Site: right antecubital; 22:21 Follow up: Response: No adverse reaction; IV Status: Completed infusion me1 21:05 Drug: MethylPrednisoLONE IVP 60 mg IVP once Route: IVP; Site: right antecubital; me1 21:12 Follow up: Response: No adverse reaction me1 21:06 Drug: Albuterol Inhalation 2.5 mg Inhalation once Route: Inhalation; me1 21:11 Follow up: Response: No adverse reaction me1 21:06 Drug: NS 0.9% IV 1000 ml IV at 1 bolus Per protocol; 1000 mL bolus Route: IV; Rate: 1 me1 bolus; Site: right antecubital; 22:22 Follow up: Response: No adverse reaction; IV Status: Completed infusion me1 21:06 Drug: Ativan IVP 0.5 mg IVP once Route: IVP; Site: right antecubital; me1 21:11 Follow up: Response: No adverse reaction; Anxiety decreased me1 21:45 Drug: Potassium PO Effervescent Tablet 50 mEq PO once; dissolve in 4 ounces of water or me1 juice Route: PO; 22:21 Follow up: Response: No adverse reaction me1 Disposition: 23:59 Co-signature as Attending Physician, Mandeep Johnson MD I reviewed the patient's care rt provided by the Advanced Practice Provider and agree with the diagnosis and treatment plan. Disposition Summary: 11/18/23 22:05 Discharge Ordered Notes: Location: Home sb4 Problem: an acute exacerbation sb4 Symptoms: have improved sb4 Condition: Stable sb4 Diagnosis - Unspecified asthma with (acute) exacerbation sb4 Followup: sb4 - With: Shubham Liz DO - When: 1 week - Reason: Recheck today's complaints, Re-evaluation by your physician Discharge Instructions: - Discharge Summary Sheet sb4 - Asthma, Adult sb4 - Asthma Action Plan, Adult sb4 Forms: - Patient Portal Instructions sb4 - Leadership Thank You Letter sb4 Prescriptions: - albuterol sulfate 90 mcg/actuation Inhalation HFA Aerosol Inhaler - inhale 2 puff INHALATION route every 4 hours as needed for shortness of breath sb4 or wheezing; 1 Applicator; Refills: 0, Product Selection Permitted Signatures: Dispatcher [employer] EDMS Dian Austin, RN RN ph Wili, Leticia, PAJimenezC PAJimenezC sb4 Mandeep Johnson MD MD rt Marlin Simon RN RN me1 Corrections: (The following items were deleted from the chart) 20:36 20:36 CBC+H.LAB.BRZ ordered. EDMS EDMS 20:36 20:36 BASIC METABOLIC PANEL+C.LAB.BRZ ordered. EDMS EDMS 20:36 20:36 MAGNESIUM+C.LAB.BRZ ordered. EDMS EDMS 20:36 20:36 Troponin High Sensitivity+C.LAB.BRZ ordered. EDMS EDMS 20:36 20:36 PROBNP+C.LAB.BRZ ordered. EDMS EDMS
--- NOTE | 2023-11-18 22:07 | ER ---
Nurse's Notes [facility] Name: Kurtis Toribio Jr Age: 33 yrs Sex: Male : 1990 Arrival Date: 11/18/2023 Time: 20:21 Bed 2 Private MD: Diagnosis: Unspecified asthma with (acute) exacerbation Presentation: 11/17 20:24 Chief complaint: Patient states: Pt states he is having an asthma attack since 1999 ph tonight. Pt c/o progressively worsening SOB with cough, SEGOVIA and chest pain with cough since that time. Coronavirus screen: cough unrelated to allergies, difficulty breathing. Coronavirus screen: headache. Ebola Screen: No symptoms or risks identified at this time. Initial Sepsis Screen: Does the patient meet any 2 criteria? No. Patient's initial sepsis screen is negative. Does the patient have a suspected source of infection? No. Patient's initial sepsis screen is negative. Risk Assessment: Do you want to hurt yourself or someone else? Patient reports no desire to harm self or others. Onset of symptoms was November 18, 2023 at 20:00. 20:24 Method Of Arrival: Ambulatory ph 20:24 Acuity: JENNIFER 3 ph Triage Assessment: 20:28 General: Appears in no apparent distress. Behavior is cooperative. Pain: Complains of ph pain in scalp and chest. EENT: No signs and/or symptoms were reported regarding the EENT system. Neuro: Level of Consciousness is awake, alert, obeys commands, Oriented to person, place, time, situation. Cardiovascular: Reports chest pain, shortness of breath, Capillary refill < 3 seconds Patient's skin is warm and dry. Respiratory: Reports shortness of breath cough that is pain with cough Onset: The symptoms/episode began/occurred suddenly, the patient has mild shortness of breath. GI: No deficits noted. : No signs and/or symptoms were reported regarding the genitourinary system. Derm: No signs and/or symptoms reported regarding the dermatologic system. Musculoskeletal: No signs and/or symptoms reported regarding the musculoskeletal system. Historical: - Allergies: 20:28 No Known Allergies; ph - Home Meds: 20:28 None [Active]; ph - PMHx: 20:28 Asthma; ph - Immunization history:: Adult Immunizations unknown. - Infectious Disease History:: Denies. - Social history:: Smoking status: Patient denies any tobacco usage or history of. Screenin:13 [facility] ED Fall Risk Assessment (Adult) History of falling in the last 3 months, me1 including since admission No falls in past 3 months (0 pts) Confusion or Disorientation No (0 pts) Intoxicated or Sedated No (0 pts) Impaired Gait No (0 pts) Mobility Assist Device Used No (0 pt) Altered Elimination No (0 pt) Score/Fall Risk Level 0 - 2 = Low Risk Maintained a safe environment, Provided non-skid footwear, Hourly rounding (assess needs \T\ fall precautionary measures) done. Abuse screen: Denies threats or abuse. Nutritional screening: No deficits noted. Tuberculosis screening: No symptoms or risk factors identified. Assessment: 21:13 General: Appears comfortable, well groomed, well developed, well nourished, Behavior is me1 calm, cooperative, appropriate for age, Reports Pt states he is having an asthma attack since 1999 tonight. Pt c/o progressively worsening SOB with cough, SEGOVIA and chest pain with cough since that time. Pain: Complains of pain in chest Pain does not radiate. Pain currently is 6 out of 10 on a pain scale. Quality of pain is described as pressure, Pain began suddenly, 1 hour ago. Is continuous. Neuro: Level of Consciousness is awake, alert, obeys commands, Oriented to person, place, time, situation, Appropriate for age. Cardiovascular: Patient's skin is warm and dry. Respiratory: Airway is patent Respiratory effort is even, unlabored, Respiratory pattern is regular, symmetrical, Breath sounds are clear bilaterally. GI: No signs and/or symptoms were reported involving the gastrointestinal system. : No signs and/or symptoms were reported regarding the genitourinary system. EENT: No signs and/or symptoms were reported regarding the EENT system. Derm: Skin is intact, is healthy with good turgor, Skin is pink, warm \T\ dry. Musculoskeletal: No signs and/or symptoms reported regarding the musculoskeletal system. 22:21 Cardiovascular: Rhythm is. me1 Vital Signs: 20:24 BP 155 / 86; Pulse 102; Resp 20; Temp 98.7(O); Pulse Ox 100% on R/A; Weight 127.01 kg; ph Height 5 ft. 111 in. ; Pain 9/10; 21:00 BP 142 / 88; Pulse 78; Resp 20; Pulse Ox 100% on R/A; me1 22:00 BP 145 / 91; Pulse 85; Resp 15; Temp 98.2; Pulse Ox 96% on R/A; me1 20:24 Body Mass Index 6.73 (127.01 kg, 434.34 cm) ph 20:24 Pain Scale: Adult ph ED Course: 20:24 Patient arrived in ED. ph 20:25 Leticia Rasheed PA-C is PHCP. sb4 20:25 Mandeep Johnson MD is Attending Physician. sb4 20:28 Triage completed. ph 20:29 Arm band placed on right wrist. ph 20:41 Marlin Simon, RADHIKA is Primary Nurse. me1 20:48 Chest Single View XRAY In Process Unspecified. EDMS 20:51 Initial lab(s) drawn, by me, sent to lab. Inserted saline lock: 22 gauge in right me1 antecubital area, using aseptic technique. 20:52 BNP Sent. me1 20:52 Troponin High Sensitivity Sent. me1 20:52 Magnesium Sent. me1 20:52 BMP Sent. me1 20:52 CBC with Diff Sent. me1 21:13 Patient has correct armband on for positive identification. Bed in low position. Call me1 light in reach. Side rails up X2. Provided Education on: POC. Verbalized understanding. .. Client placed on continuous cardiac and pulse oximetry monitoring. NIBP monitoring applied. meat smoker on. Pulse ox on. NIBP on. 21:13 No provider procedures requiring assistance completed. me1 22:05 Shubham Liz DO is Referral Physician. sb4 22:20 IV discontinued, intact, bleeding controlled, No redness/swelling at site. Pressure me1 dressing applied. Administered Medications: 21:05 Drug: Magnesium Sulfate IVPB 1 grams IVPB once over 1 hrs Route: IVPB; Infused Over: 1 me1 hrs; Site: right antecubital; 22:21 Follow up: Response: No adverse reaction; IV Status: Completed infusion me1 21:05 Drug: MethylPrednisoLONE IVP 60 mg IVP once Route: IVP; Site: right antecubital; me1 21:12 Follow up: Response: No adverse reaction me1 21:06 Drug: Albuterol Inhalation 2.5 mg Inhalation once Route: Inhalation; me1 21:11 Follow up: Response: No adverse reaction me1 21:06 Drug: NS 0.9% IV 1000 ml IV at 1 bolus Per protocol; 1000 mL bolus Route: IV; Rate: 1 me1 bolus; Site: right antecubital; 22:22 Follow up: Response: No adverse reaction; IV Status: Completed infusion me1 21:06 Drug: Ativan IVP 0.5 mg IVP once Route: IVP; Site: right antecubital; me1 21:11 Follow up: Response: No adverse reaction; Anxiety decreased me1 21:45 Drug: Potassium PO Effervescent Tablet 50 mEq PO once; dissolve in 4 ounces of water or me1 juice Route: PO; 22:21 Follow up: Response: No adverse reaction me1 Medication: 21:13 VIS not applicable for this client. me1 Outcome: 22:05 Discharge ordered by . [email or web address] 22:21 Discharged to home ambulatory, with family, me1 22:21 Condition: stable 22:21 Condition: stable 22:21 Discharge instructions given to patient, family, Instructed on discharge instructions, follow up and referral plans. medication usage, Demonstrated understanding of instructions, follow-up care, medications, Prescriptions given X 1, 22:21 Patient left the ED. me1 Signatures: Dispatcher [employer] Dian Conn RN RN ph Leticia Rasheed PA-C PAMarlin Mckenzie RN RN me1 Corrections: (The following items were deleted from the chart) 21:13 20:24 Chief complaint: Patient states: Pt states he is having an asthma attack since me1 1999 tonight. Pt c/o progressively worsening SOB with cough, SEGOVIA and chest pain with cough since that time. ph
[2023-11-18 22:34] VITALS: BP 145/91; TEMP 98.2; O2SAT 96
== END 2023-11-18 22:21 | disposition home or self-care (01) ==
LOC: ER 20:21
DX: J45.901 Unspecified asthma with (acute) exacerbation (principal)
CPT/HCPCS: 96365; 85025; 80048; 36415; 83735; 84484; 83880; 71045; 96375; 99285; J3475; J7613; J7030; J2919